=== PATIENT | male | born 1975 | race African-American/Black ===

== ENCOUNTER 2017-01-15 08:48 | Day surgery (SDC) | payer MEDICAID, OTHER ==
[~2017-01-15] VITALS: Ht 172.7 cm; Wt 90.0 kg
[2017-01-15] VITALS (9 sets, daily range): BP systolic 120–150; BP diastolic 70–83; PULSE 60–84; RESP 12–20; Ht 172.7 cm; Wt 90.0 kg
[~2017-01-15 08:48] MED LIST: CEFAZOLIN 1 GM INJ ONE; CEFAZOLIN 2 GM/50 ML (PMX) 50 ML IVPB ONE; SOD CHLORIDE 0.9% 1,000 ML IV SCH
[2017-01-15 09:45] LABS: ADD SCAN DIFF NO
[2017-01-15 09:51] LABS: BASOPHILS % 0.3 % (0.0-2.0); EOSINOPHILS # 0.1 10^3/ul (0.0-0.5); EOSINOPHILS % 1.4 % (0.0-7.0); HEMATOCRIT 45.5 % (42.0-52.0); HEMOGLOBIN 15.7 g/dl (14.0-18.0); LYMPHOCYTES # 2.7 10^3/ul (0.8-2.9); MEAN CORPUSCULAR HEMOGLOBIN 31.4 pg (29.0-33.0); MEAN CORPUSCULAR HGB CONC 34.5 g/dl (32.0-37.0); MEAN PLATELET VOLUME 10.7 fl (7.4-10.4); MONOCYTE # 0.8 10^3/ul (0.3-0.9); MONOCYTES % 10.1 % (0.0-11.0); NEUTROPHIL # 3.8 10^3/ul (1.6-7.5); NEUTROPHILS % 51.9 % (39.0-77.0); PLATELET COUNT 285 10^3/UL (140-415); RED CELL DISTRIBUTION WIDTH 12.8 % (11.5-14.5); WHITE BLOOD COUNT 7.4 10^3/ul (4.8-10.8)
[2017-01-15 10:01] LABS: INR 0.9; PROTIME 12.1 Sec (12.2-14.2); PT RATIO 0.9
[2017-01-15 10:02] LABS: PARTIAL THROMBOPLASTIN TIME 28.1 Sec (25.0-35.0); POTASSIUM 4.4 mmol/L (3.5-5.1)
[2017-01-15 10:07] LABS: CALCIUM 9.7 mg/dl (8.4-10.2); CREATININE 1.44 mg/dl (0.61-1.24)
[2017-01-15] MEDS ORDERED: BUPIVACAINE 0.5%/EPI (SDV) 30 ML INJ ONE (10:28)
[2017-01-15] MEDS ORDERED: PROPOFOL 20 ML ONE (10:31)
[2017-01-15] MEDS ORDERED: MIDAZOLAM 1 MG/ML 2 ML INJ ONE (10:32)
[2017-01-15] MEDS ORDERED: FENTAnyl 50 MCG/ML VIAL ONE (10:32)
[2017-01-15] MEDS ORDERED: BUPIVACAINE 0.5% (SDV) 30 ML INJ ONE (11:08)
[2017-01-15] MEDS ORDERED: PROPOFOL 100 ML ONE (11:18)
[2017-01-15] MEDS ORDERED: EPHEDrine SULFATE 50 MG/5 ML SYG IV PRN (11:30)
[2017-01-15] MEDS ORDERED: DIPHENHYDRAMINE 50 MG INJ IV PRN (11:30)
[2017-01-15] MEDS ORDERED: hydrALAzine 20 MG INJ IV PRN (11:30)
[2017-01-15] MEDS ORDERED: HYDROmorphONE (0.2 MG/ML) 10ML SYG IV PRN ×3 (11:30)
[2017-01-15] MEDS ORDERED: ONDANSETRON 4 MG INJ IV PRN (11:30)
[2017-01-15] MEDS ORDERED: MEPERIDINE 25 MG INJ IV PRN (11:30)
--- NOTE | 2017-01-15 12:17 | OPR ---
DATE OF OPERATION: 01/15/2017 PREOPERATIVE DIAGNOSIS: Left earlobe mass. POSTOPERATIVE DIAGNOSIS: Left earlobe mass. OPERATION PERFORMED: Excision of left earlobe mass. ANESTHESIA: General. ANESTHESIOLOGIST: Jamie Hopper. SURGEON: Mark Villela MD BEADER TENDER: Dr. Payne. INDICATIONS FOR PROCEDURE: The patient is a 41-year-old male who previously been treated for a kelo id of his left ear secondary to a piercing that was greater than 3 years ago. The mass has recurred in spite of the fact that he receives post-excision radiation and he requested reexcision and full y understood that there would be a high likelihood of recurrence. He consented and was scheduled fo r surgery. DESCRIPTION OF PROCEDURE: The patient was brought to the operating theater, placed under general an esthesia. The left ear was prepped and draped in usual sterile fashion. The exophytic mass was the n excised in an elliptical fashion from the lobe, taking care to try and remove as much of the obvio us keloid tissue as possible. The mass was sent for pathologic analysis. Bleeding was controlled w ith cautery, and the incision was then closed with multiple 5-0 Monocryl sutures in interrupted fash ion. The patient tolerated procedure well. Estimated blood loss was 10 mL. There were no complica tions and the patient was transported in stable condition to the recovery room. Dictated By: MARK CARL/NEDRA Conf#: [id number] DID#: [id number]
[2017-01-15] MEDS ORDERED: HYDROCODONE/APAP (10/325) TAB GTB PRN (13:00)
== END 2017-01-15 16:23 | disposition home or self-care (01) ==
LOC: SDS 08:48
PROVIDERS: ATTEND Surgery Surgical Oncology
DX: L91.0 Hypertrophic scar (principal); E66.9 Obesity, unspecified; Z68.30 Body mass index [BMI] 30.0-30.9, adult
CPT/HCPCS: 69145; 80048; 85025; 85610; 85730; 88307; J0690; J1170; J2250; J3010; Z7512; Z7610